=== PATIENT | female | born 2000 | race Caucasian/White ===

== ENCOUNTER 2023-09-30 | Emergency (ER) | payer OTHER ==
[~2023-09-30] VITALS: Ht 162.6 cm; Wt 54.4 kg
[2023-09-30 00:26] VITALS: BP 97/50; TEMP 97.9
[2023-09-30 00:49] VITALS: O2SAT 97
== END 2023-09-30 00:49 | disposition home or self-care (01) ==
LOC: ER 00:01
DX: R56.9 Unspecified convulsions (principal); Z88.1 Allergy status to other antibiotic agents
CPT/HCPCS: 82962-TC